=== PATIENT | female | born 1935 | race Caucasian/White ===

== ENCOUNTER → 2016-12-09 | Outpatient (CLI) | payer MEDICARE, OTHER ==
[~2016-12-09] MED LIST: 1-ME1LIQ PO; ALPR0.5T3 PO; ASPI81 PO; ATEN-100 PO; DOXE10 PO; FENO54TA PO; FLON0.053; HYDR-2768 PO; LEVO.025 PO; MONT10 PO; MULT-4 PO; OMEP20TA PO
--- NOTE | 2016-12-13 11:21 | RSPPFT ---
DATE OF PROCEDURE: 12/09/16 COMMENTS: Spirometry shows FVC of 2.5 at 99% of predicted, FEV1 of 1.9 at 111%, FEV1/FVC ratio is normal. Flow is normal at FEF 25 and FEF 25-75. Flow is mildly decreased at FEF 50 and FEF 75. There is no response after bronchodilator treatment. Lung volumes show residual volume is slightly increased. Diffusion capacity is normal. Flow volume loop indicates a normal pattern. IMPRESSION: 1. Mild small airways obstructive lung disease. 2. No response after bronchodilator treatment. 3. Lung volumes show mild hyperinflation. 4. Diffusion capacity is normal.
== END ==
LOC: HRSP 10:21
PROVIDERS: ATTEND Specialist
DX: R06.00 Dyspnea, unspecified (principal)
CPT/HCPCS: 94060; 94726; 94729